=== PATIENT | female | born 1970 | race Two or more races ===

== ENCOUNTER 2024-08-06 07:30 | Emergency (ER) | payer OTHER ==
[~2024-08-06] VITALS: Ht 149.9 cm; Wt 55.9 kg
[~2024-08-06 07:30] MED LIST: ATOR40TA28 PO; METF-1185 PO; METR500 PO; cipro PO
[2024-08-06 07:33] VITALS: TEMP 98.5
[2024-08-06 07:48] VITALS: BP 138/87; PULSE 79; RESP 16; O2SAT 99
== END 2024-08-06 08:43 | disposition home or self-care (01) ==
LOC: EMS 07:31
DX: S82.452A Displaced comminuted fracture of shaft of left fibula, initial encounter for closed fracture (principal); E11.9 Type 2 diabetes mellitus without complications; X50.1XXA Overexertion from prolonged static or awkward postures, initial encounter; Y93.89 Activity, other specified; Y92.89 Other specified places as the place of occurrence of the external cause; Y99.8 Other external cause status
CPT/HCPCS: 99283